=== PATIENT | female | born 1940 | race Caucasian/White ===

== ENCOUNTER → 2016-10-11 | Outpatient (CLI) | payer OTHER ==
[~2016-10-11] MED LIST: ACET-1138 PO; ACET-24 PO; AMLO-114 PO; ASPEC325 PO; ASPI81TA28 PO; ATEN50TA8 PO; CLR10 PO; DOCU100C PO; ESTR0.3T PO; FERR1TAB13 PO; IBUP-1450 PO; POTA10CA28 PO; RXC5 PO; ULT50X PO
--- NOTE | 2016-10-11 12:14 | DIAGNOSTIC IMAGING REPORT ---
FLUOROSCOPICALLY GUIDED RIGHT HIP STEROID AND ANESTHETIC INJECTION CLINICAL HISTORY: Right hip pain and degenerative arthritis COMPARISON STUDY: None FLUOROSCOPY TIME: 38 seconds. A single fluoroscopic spot image was acquired.. FINDINGS: A timeout was performed. The risks of the procedure were explained the patient and informed consent was obtained. The patient was prepped and draped in sterile fashion. The skin was anesthetized 1% lidocaine. A 20-gauge spinal needle was introduced into the joint capsule under fluoroscopic guidance. Intra-articular location was documented with injection of Optiray 300. There was a nodular irregular synovium. 8 cc of 0.5% bupivacaine and 2 cc of betamethasone were instilled into the joint. IMPRESSION: Successful fluoroscopically guided right hip injection. 8 cc of 0.5% bupivacaine and 2 cc of betamethasone were instilled intra-articularly. Electronically signed by: Mark Bowers M.D. 10/11/2016 12:12 PM Dictated Date/Time: 10/11/2016 12:10 PM
--- NOTE | 2016-10-12 11:01 | CODING QUERY NO DIAGNOSIS ---
TREATMENT RENDERED WITHOUT A DIAGNOSIS To promote full compliance with coding requirements relating to patient care, physician participation is requested in all cases of information coder uncertainty. Please assist us with providing a diagnosis/symptom for the test(s) below: A diagnosis/symptom was not documented on your Order. A valid diagnosis/symptom is required to bill all insurances. Please remember that we are unable to code a diagnosis of rule out, probable, possible, questionable, or suspected. DATE OF SERVICE: 10/11/16 Tests that require a diagnosis: * INTRAARTICULAR HIP INJECTION RIGHT DIAGNOSIS: Provider Signature: Date: [facility] Once completed, please kindly fax back to [phone] For questions please call [phone]
== END | disposition home or self-care (01) ==
LOC: C.RADBC 10:43
PROVIDERS: ATTEND Orthopaedic Surgery Sports Medicine
DX: M16.11 Unilateral primary osteoarthritis, right hip (principal)

== ENCOUNTER 2017-06-07 08:20 | Inpatient (IN) | payer OTHER ==
[2017-05-14 08:09] VITALS: BMI 28.0
--- NOTE | 2017-05-14 08:36 | PAT Medication Instructions ---
Service Date May 14, 2017. Current Home Medication List Amlodipine (Norvasc), 10 MG PO QAM Aspirin (Aspirin Ec), 81 MG PO QAM Atenolol (Tenormin), 50 MG PO QAM Docusate Sodium (Stool Softener), 100 MG PO QAM Estrogens, Conjugated (Premarin), 0.3 MG PO 3XWK Ferrous Sulfate (Kp Ferrous Sulfate), 1 TAB PO QAM Ibuprofen (Motrin), 600 MG PO Q6H PRN for Pain Loratadine (Claritin), 10 MG PO DAILY PRN for WATERY EYES Potassium Chloride (Micro-K Ext Rel), 10 MEQ PO DAILY PRN for LEG CRAMPS Medication Instructions For Your Scheduled Surgery - Hold the following medications per surgeon's instructions: Ibuprofen (Motrin), 600 MG PO Q6H PRN for Pain - Hold the following medications the morning of surgery: Ferrous Sulfate (Kp Ferrous Sulfate), 1 TAB PO QAM Loratadine (Claritin), 10 MG PO DAILY PRN for WATERY EYES Potassium Chloride (Micro-K Ext Rel), 10 MEQ PO DAILY PRN for LEG CRAMPS Docusate Sodium (Stool Softener), 100 MG PO QAM Estrogens, Conjugated (Premarin), 0.3 MG PO 3XWK - Take the following medications the morning of surgery with a sip of water OTHERWISE NOTHING TO EAT OR DRINK AFTER MIDNIGHT: Amlodipine (Norvasc), 10 MG PO QAM Aspirin (Aspirin Ec), 81 MG PO QAM Atenolol (Tenormin), 50 MG PO QAM If you have any questions please call us at [phone] or [phone] or [phone]
--- NOTE | 2017-05-14 09:18 | DIAGNOSTIC IMAGING REPORT ---
TWO VIEW CHEST CLINICAL HISTORY: Preoperative examination. FINDINGS: PA and lateral chest radiographs are compared to study dated 04/23/2016. The cardiomediastinal silhouette is unremarkable. The lungs and pleural spaces are clear. There is no pneumothorax. The skeletal structures are osteopenic. The bony thorax appears intact. Suture material is noted in the upper abdomen. IMPRESSION: No active disease in the chest. Electronically signed by: Ramin Roper M.D. 05/14/2017 9:16 AM Dictated Date/Time: 05/14/2017 9:15 AM
[2017-05-14 09:42] LABS: BASO % 0.9 %; BASO ABS # 0.06 K/uL (0-0.2); COMPLETE YES; EOS % 2.8 %; HEMATOCRIT 43.5 % (37-47); IG% 0.3 %; LYMPH % 21.2 %; LYMPH ABS # 1.37 K/uL (1.2-3.4); MEAN CELL VOLUME 88.1 fL (80-100); MEAN CORPUSCULAR HEMOGLOBIN 31.6 pg (25-34); MEAN CORPUSCULAR HGB CONC 35.9 g/dl (32-36); MEAN PLATELET VOLUME 10.6 fL (7.4-10.4); MONO % 7.9 %; NEUT % 66.9 %; PLATELET COUNT 340 K/uL (130-400); RED BLOOD COUNT 4.94 M/uL (4.2-5.4); WHITE BLOOD COUNT 6.46 K/uL (4.8-10.8)
[2017-05-14 09:55] LABS: INR 0.9 (0.9-1.1); PROTHROMBIN TIME (PATIENT) 10.1 SECONDS (9.0-12.0)
[2017-05-14 11:55] LABS: BLOOD UREA NITROGEN 14 mg/dl (7-18); BUN/CREATININE RATIO 21.2 (10-20); C-REACTIVE PROTEIN < 0.29 mg/dl (0-0.29); CALCIUM 9.5 mg/dl (8.5-10.1); CARBON DIOXIDE 29 mmol/L (21-32); CHLORIDE 106 mmol/L (98-107); CREATININE 0.66 mg/dl (0.60-1.20); GLUCOSE 94 mg/dl (70-99); POTASSIUM 4.2 mmol/L (3.5-5.1); SODIUM 140 mmol/L (136-145)
--- NOTE | 2017-05-30 14:16 | HISTORY & PHYSICAL EXAMINATION ---
DATE OF ADMISSION: 06/07/2017 CHIEF COMPLAINT: Right hip pain and leg pain. HISTORY OF PRESENT ILLNESS: The patient is a 76-year-old female who is status post a left knee replacement about a year ago who presents for treatment of her right hip. She describes groin pain. The more she walks, the more it hurts. It has been fairly chronic, but gotten worse since her knee replacement surgery. She has nighttime discomfort. She has difficulty putting her shoes and socks on. She has now become limited by this pain and would like to have a right hip replaced. PAST MEDICAL HISTORY: Significant for hypertension. PAST SURGICAL HISTORY: Include: 1. Cyst removal from her lung. 2. Cyst removed from her spine. 3. Left total knee replacement done 05/23/2016. ALLERGIES: None. CURRENT MEDICINES: Include: 1. Amlodipine 10 mg. 2. Prempro 3 times a week. 3. Atenolol 50 mg a day. 4. Aspirin 81 mg. 5. Loratadine 10 mg a day. 6. Ibuprofen. SOCIAL HISTORY: A 76-year-old female patient from [place]. She is . REVIEW OF SYSTEMS: Negative for diabetes, neurologic problems, vascular problems, bleeding disorders. No chest pain or shortness of breath. No history of DVT or PE. PHYSICAL EXAMINATION: GENERAL: Reveals a healthy pleasant, middle-aged female. She looks to be in pretty good health. HEAD, EYES, EARS, NOSE, AND THROAT EXAMINATION: Benign. NECK: Supple. No lymphadenopathy. LUNGS: Clear to auscultation. HEART: Has a regular rate and rhythm. ABDOMEN: Soft, nontender, nondistended. EXTREMITY EXAMINATION: Grossly neurovascularly intact except as follows: Examination of the right hip reveals the patient walks with a slightly antalgic gait. Leg lengths clinically appear pretty equal. She does have pain with any type of hip motion. Hip internal rotation is to neutral at best. External rotation at 25 degrees. Negative straight leg raise. X-RAYS: X-rays of the right hip reveal advanced right hip DJD. She has got complete loss of her joint space. She has got osteophytes around the femoral head and acetabulum. ASSESSMENT: A 76-year-old female a year out from a left knee replacement with advanced right hip degenerative joint disease. She is now limited by her hip pain and discomfort and stiffness. She would like to have her hip replaced. PLAN: We will take her to the operating room and do a right total hip replacement. The risks and benefits of this procedure were explained to the patient including but not limited to DVT, PE, , infection, neurological injury, vascular injury, bleeding problem, pain, limited range of motion, stiffness, failure to relieve her symptoms, incomplete relief of symptoms, need for further surgery in the future, fracture, leg length inequality, nerve palsy, dislocation, need for revision surgery, etc. The patient understands and desires to proceed. Informed consent was obtained. We did talk to her about taking his atenolol the morning of surgery. She is planning to be discharged to home using [facility] home health program.
[2017-06-07] VITALS (15 sets, daily range): BP systolic 107–166; BP diastolic 58–96; PULSE 71–80; TEMP 36.3–36.9; O2SAT 91–99; Ht 160 cm; Wt 73.8 kg
[~2017-06-07] VITALS: Ht 160 cm; Wt 73.8 kg
[~2017-06-07 08:20] MED LIST changes: -ACET-1138 PO; -ACET-24 PO; +ACETAMINOPHEN 500 MG TAB PO SCH; -ASPEC325 PO; +BUPIVACAINE 0.5 % 5 MG/1 ML PF 10ML VIAL ONE; +CEFAZOLIN 2000 MG/60 ML D5W 60 ML IV SCH; +FAMOTIDINE 20 MG TAB PO SCH; +GABAPENTIN 300 MG CAP PO SCH; +LACTATED RINGER'S 1000ML 1,000 ML IV SCH; +LACTATED RINGER'S 1000ML 500 ML IV ONE; +LACTATED RINGER'S 1000ML IV SCH; +METOCLOPRAMIDE HCL 10 MG TAB PO SCH; -RXC5 PO; +SCOPOLAMINE 1.5 MG TDSY TD SCH; +TRANEXAMIC ACID INJ 1,000 MG in SODIUM CHLORIDE 0.9% 100ML 100 ML IV SCH; -ULT50X PO
--- NOTE | 2017-06-07 09:10 | History & Physical Bridge Note ---
H&P Re-Evaluation Bridge Note: I have examined the patient, reviewed the History & Physical and in the interval since the performance of the History & Physical I have noted the following changes of clinical significance: No changes noted
[2017-06-07] MEDS ORDERED: FENTANYL CITRATE INJ 50 MCG/1 ML 2 ML VIAL ONE (10:06)
[2017-06-07] MEDS ORDERED: MIDAZOLAM HCL 1 MG/ML 2ML VIAL ONE (10:06)
[2017-06-07] MEDS ORDERED: ONDANSETRON INJ 2 MG/ML 2 ML VIAL IV PRN ×2 (10:30→13:45)
[2017-06-07] MEDS ORDERED: ATROPINE SULFATE 0.1 MG/ML 5ML SYR IV PRN (10:30)
[2017-06-07] MEDS ORDERED: EpHEDrine SULFATE INJ 50 MG/ML AMP IV PRN ×2 (10:30→13:45)
[2017-06-07] MEDS ORDERED: MoRPHine SULFATE PF 1 MG/ML 10 ML AMP/VIAL ONE (10:44)
[2017-06-07] MEDS ORDERED: BACITRACIN 50000 UNIT VIAL ONE ×2 (11:16→11:27)
[2017-06-07] MEDS ORDERED: BUPIVACAINE/EPINEPHRINE 0.5% MPF 1:200,000 30 ML VIAL ONE ×2 (11:16→11:27)
[2017-06-07] MEDS ORDERED: EpHEDrine SULFATE 50MG/5ML SYR ONE (11:46)
[2017-06-07] MEDS ORDERED: PROPOFOL IV EMULSION 10 MG/ML 20 ML VIAL IV ONE (11:46)
[2017-06-07] MEDS ORDERED: LIDOCAINE HCL 2% 2 ML VIAL (20MG/ML) ONE (11:46)
[2017-06-07] MEDS ORDERED: PHENYLEPHRINE 100MCG/ML 5ML SYR ONE (11:54)
--- NOTE | 2017-06-07 13:04 | [facility] Post Operative Brief Note ---
Immediate Operative Summary Operative Date Jun 07, 2017. Pre-Operative Diagnosis Advanced Right Hip Degenerative Joint Disease Post-Operative Diagnosis Same as preoperative Procedure(s) Performed Right Total Hip Arthroplasty, Uncemented Surgeon Dr. Jeremy Thacker Kitchen Food Server Surgeon(s) Je Salinas PA-C Estimated Blood Loss 300ML Findings Right Hip DJD Fluids (cc crystalloids) 1350 cc Specimens A.) Right Femoral Head Drains None Anesthesia Spinal Complication(s) None Disposition Recovery Room / PACU
[2017-06-07] MEDS ORDERED: BISACODYL 10 MG SUPP PR PRN (13:15)
[2017-06-07] MEDS ORDERED: POTASSIUM CHLORIDE 10 MEQ TABCR PO PRN (13:15)
[2017-06-07] MEDS ORDERED: MAGNESIUM HYDROXIDE SUSP 30 ML UDC PO PRN (13:15)
[2017-06-07] MEDS ORDERED: ALUMINUM/MAGNESIUM/SIMETH (MAALOX MAX) 30 ML UDC PO PRN (13:15)
[2017-06-07] MEDS ORDERED: SILVER SULFADIAZINE 1% CR 50 GM JAR EXT PRN (13:15)
[2017-06-07] MEDS ORDERED: LORATADINE 10 MG TAB PO PRN (13:15)
[2017-06-07] MEDS ORDERED: LACTATED RINGER'S 1000ML 500 ML IV PRN (13:31)
[2017-06-07] MEDS ORDERED: NALOXONE HCL INJ 1 MG in SODIUM CHLORIDE 0.9% 1000ML 1,000 ML IV PRN (13:31)
[2017-06-07] MEDS ORDERED: NALOXONE HCL INJ 0.08 MG in SYRINGE 1.8 ML IV PRN (13:31)
[2017-06-07] MEDS ORDERED: SODIUM CHLORIDE 0.9% 1000ML 1,000 ML IV PRN (13:31)
--- NOTE | 2017-06-07 13:41 | DIAGNOSTIC IMAGING REPORT ---
RIGHT PELVIS/UNILATERAL HIP 1 VIEW CLINICAL HISTORY: Postoperative evaluation. COMPARISON: Pelvis and right hip radiographs January 24, 2017. FINDINGS: Alignment of the total right hip arthroplasty is anatomic. There is no periprosthetic fracture or unexpected radiopaque foreign body. Acetabular screws are placed. There are skin sophia. IMPRESSION: Expected findings following total right hip arthroplasty. Electronically signed by: Luigi Webb M.D. 06/07/2017 1:39 PM Dictated Date/Time: 06/07/2017 1:38 PM
[2017-06-07] MEDS ORDERED: DiphenhydrAMINE HCL 50 MG/ML VIAL IV PRN (13:45)
[2017-06-07] MEDS ORDERED: NO NARCOTICS OR SEDATIVES SCH (13:45)
[2017-06-07] MEDS ORDERED: NALBUPHINE HCL INJ 10 MG/ML AMP IV PRN (13:45)
[2017-06-07] MEDS ORDERED: MoRPHine SULFATE PF 1 MG/ML 10 ML AMP/VIAL EPI PRN (13:45)
[2017-06-07] MEDS ORDERED: NALOXONE HCL 0.4 MG/1 ML VIAL/CARP IV PRN (13:45)
[2017-06-07] MEDS ORDERED: MoRPHine SULFATE 2 MG/ML CARP IV PRN (13:45)
--- NOTE | 2017-06-07 14:03 | OPERATIVE REPORT ---
DATE OF OPERATION: 06/07/2017 SURGEON: Jeremy Thacker MD FINANCE DIRECTOR: EDITH Vyas PREOPERATIVE DIAGNOSIS: Right hip degenerative joint disease. POSTOPERATIVE DIAGNOSIS: Same. PROCEDURE PERFORMED: Right uncemented total hip arthroplasty. COMPLICATIONS: None. ESTIMATED BLOOD LOSS: 300 mL. FLUID REPLACEMENT: 1350 mL crystalloid fluid replacement. ANESTHESIA: Spinal. DRAINS: None. SPECIMENS: Right femoral head sent for pathology. OPERATIVE INDICATIONS: The patient is a 76-year-old fairly active female, who is a little over a year out from a left knee replacement. She has become more and more limited by her right hip pain. She has a several year history of right hip pain that has gotten significantly worse over the past year. The more she walks, the more it hurts. X-rays revealed advanced hip DJD and the patient elected to proceed with operative treatment. OPERATIVE FINDINGS: Operative findings revealed advanced right hip DJD. She had grade 4 ofbr-ld-sope disease of the femoral head and acetabulum. She had a moderate sized joint effusion. OPERATIVE IMPLANTS: Operative implants consisted of: 1. Biomet G7 size 50-mm acetabular shell. 2. An apex hole eliminator. 3. A 6.5 cancellous acetabular screws, 1 at 35 mm length and 1 at 20 mm in length. 4. A highly cross-linked polyethylene liner with a 50 mm outer diameter and 32 mm inner diameter with a crespo placed inferior and posterior. 5. A DePuy size 12 small stature AML femoral stem. 6. A +1/32 mm metal articular ball. OPERATIVE PROCEDURE: The patient was taken to the operating room, identified and placed on the operating table in supine position. All contact areas were appropriately padded. IV antibiotics were provided by anesthesia team. A spinal anesthetic had been implemented in the holding area. Rivera catheter was placed in sterile fashion. The patient was then placed in the left lateral decubitus position. An axillary roll was placed. Stulberg hip positioner was used for positioning. The right hip and leg were then prepped and draped in the usual sterile fashion. A posterolateral approach to the right hip was then performed through a curvilinear incision centered over the greater trochanter. Sharp dissection was carried through the subcutaneous tissues down to the IT band and gluteal fascia. The IT band and gluteal fascia were then incised longitudinally in line with skin incision. The greater trochanteric bursa was excised. The piriformis and external rotators were then tagged and taken very carefully off the posterior aspect of the hip joint capsule. Great care was taken throughout the procedure to protect the sciatic nerve at all times. Posterior capsulotomy was then performed leaving a large flap for later repair. Hip was internally rotated and dislocated. Femoral neck osteotomy cut was made with the final cut 10 mm above the lesser trochanter. Femoral head was removed and sent for pathology. The femur was retracted anteriorly. Attention was then drawn to the acetabulum. The acetabular labrum was excised. The pulvinar fat was excised. Sequential reaming of the acetabulum was then performed beginning with a size 43 and progressing up to 49. A 50-mm Biomet G7 acetabular shell was then placed in about 40 degrees of lateral opening and 20 degrees of anteversion. It was fixed with two 6.5 cancellous acetabular screws. Small osteophyte anteriorly was removed. A trial liner was placed. Attention was then drawn to the femur. The proximal femur was entered with a cookie cutter followed by canal finder and lateralizing reamer. Sequential reaming of the femur was then performed beginning with a size 9 and progressing up to 11.5. We got good chatter at 11.5. I broached beginning with a size 10.5 small broach and progressed to a 12 small. We got good metaphyseal fit. We then trialed the hip. With the +5 articular ball, the hip was stable, but the hip was tight anteriorly. Therefore, we placed a +1 articular ball. It was fully stable in full extension and external rotation, flexion to 90 degrees, and internal rotation to about [address] a crespo inferior and posterior to maximize the stability in flexion. She was tight anteriorly and I wanted to maximize her stability posteriorly. We elected to use these implants. All trial implants were removed. An apex hole eliminator was placed. Highly cross-linked polyethylene liner with a crespo placed inferior and posterior was placed. A DePuy size 12 small stature AML femoral stem was impacted in position. I then placed a +1/32 mm metal articular ball. Hip was located and once again found to be stable. Attention was then drawn toward closing. The wound was irrigated with copious amounts of pulsatile lavage solution. I did inject locally with 60 mL of 0.5% Marcaine with epinephrine. The posterior capsule and external rotators were repaired through drill holes in the posterior trochanter with #2 Ti-Cron suture. The IT band and gluteal fascia were then closed with #1 PDS suture in running fashion. The subcutaneous tissues were then closed with 2 layers with the deep layer #1 Vicryl sutures, subcutaneous tissue with 2-0 Dexon suture in a buried interrupted fashion. The skin was closed with skin sophia. Leg was then cleaned and dried and a sterile dressing of Xeroform, 4 x 4s, ABD pad and foam tape was applied. The patient was then transferred to the recovery room in stable condition. The patient tolerated the procedure well with no complications. All needle and sponge counts were correct at the end of the operation. I attest to the content of the Intraoperative Record and any orders documented therein. Any exception s are noted below.
--- NOTE | 2017-06-07 14:12 | Anesthesiology Progress Note ---
Anesthesia Post Op Note Date & Time Jun 07, 2017 at 14:12 Vital Signs Pain Intensity: 0 Vital Signs Past 12 Hours Date Time Temp Pulse Resp B/P (MAP) Pulse Ox O2 Delivery O2 Flow Rate FiO2 06/07/17 13:41 114/60 06/07/17 13:38 36.4 74 16 114/60 (95) 99 Nasal Cannula 2 06/07/17 13:38 69 13 98 06/07/17 13:38 68 13 06/07/17 13:36 122/63 06/07/17 13:33 75 13 06/07/17 13:33 76 13 99 06/07/17 13:32 77 14 06/07/17 13:32 77 14 98 06/07/17 13:31 113/64 06/07/17 13:27 73 21 06/07/17 13:27 77 21 100 06/07/17 13:26 115/64 06/07/17 13:22 70 15 06/07/17 13:22 69 15 100 06/07/17 13:21 120/62 06/07/17 13:17 78 15 100 06/07/17 13:17 78 15 06/07/17 13:16 129/65 06/07/17 13:12 74 18 100 06/07/17 13:12 75 18 06/07/17 13:11 117/76 06/07/17 13:07 36.0 76 12 118/61 94 Mask 10 06/07/17 13:07 77 16 118/61 94 06/07/17 13:07 77 16 06/07/17 08:45 36.8 71 20 166/96 99 Room Air Notes Mental Status: alert / awake / arousable, participated in evaluation Pt Amnestic to Procedure: Yes Nausea / Vomiting: adequately controlled Pain: adequately controlled Airway Patency, RR, SpO2: stable & adequate BP & HR: stable & adequate Hydration State: stable & adequate Neuraxial Anesthesia: was administered, sensory block is resolving Anesthetic Complications: no major complications apparent
[2017-06-07] MEDS: CHECK SCOPOLAMINE PATCH PLACEMENT SCH ×2 (15:33→23:34)
[2017-06-07] MEDS: D5W AND 1/2NSS + 20MEQ KCL 1,000 ML IV SCH ×2 (15:33→23:34)
[2017-06-07] MEDS: KETOROLAC TROMETHAMINE 15 MG/ML VIAL IV. SCH ×2 (15:33→22:18)
[2017-06-07] MEDS: FERROUS GLUCONATE 324 MG TAB PO SCH (17:20)
--- NOTE | 2017-06-07 18:03 | PROGRESS NOTE ---
DATE: 06/07/2017 SUBJECTIVE: A 76-year-old female postop from a right total hip replacement. She is doing well. Really not having any pain yet. No chest pain or shortness of breath. Not feeling dizzy or lightheaded. OBJECTIVE: VITAL SIGNS: Temperature 36.3. Vital signs stable. PHYSICAL EXAMINATION: GENERAL: Reveals a healthy, pleasant middle-aged female. She is sitting up in bed and looks quite comfortable. LUNGS: Clear to auscultation. HEART: Regular rate and rhythm. ABDOMEN: Soft, nontender, nondistended. EXTREMITIES: Grossly neurovascularly intact except as follows: Examination of the right leg reveals the leg to be well aligned. Dressing is clean, dry and intact. Hip is located. She is neurologically intact. She can dorsiflex and plantarflex her foot appropriately. X-RAYS: X-rays of the right hip from recovery room were reviewed. She has a right uncemented total hip arthroplasty. Components look to be in good position. No signs of problems. ASSESSMENT: A 76-year-old female postop from a right total hip replacement. She is doing well. Pain is controlled. Hip is located. She is neurologically intact. PLAN: 1. DVT prophylaxis including thigh-high TEDs, SCDs, and aspirin twice a day. 2. PT/OT. Weightbearing as tolerated. Right total hip protocol. 3. Pain control, doing well with current pain regimen. 4. IV antibiotics x4 hours. 5. Disposition: She is hoping to be discharged to home with some home health once adequately recovered.
[2017-06-07] MEDS ORDERED: TRANEXAMIC ACID INJ 1,000 MG in SODIUM CHLORIDE 0.9% 100ML 100 ML IV ONE (19:00)
[2017-06-07] MEDS: ASPIRIN 325 MG ECTAB PO SCH (20:38)
[2017-06-07] MEDS: SENNA 8.6 MG TAB PO SCH (20:38)
[2017-06-07] MEDS: DOCUSATE SODIUM 100 MG CAP PO SCH (20:38)
[2017-06-07] MEDS: CEFAZOLIN IV 1,000 MG in DEXTROSE 5% 50ML 50 ML IV SCH (20:39)
[2017-06-07] MEDS: ACETAMINOPHEN 500 MG TAB PO SCH (22:18)
[2017-06-08] VITALS (20 sets, daily range): BP systolic 114–155; BP diastolic 64–76; PULSE 64–88; TEMP 36.7–37.2; O2SAT 91–98
[2017-06-08] MEDS: CEFAZOLIN IV 1,000 MG in DEXTROSE 5% 50ML 50 ML IV SCH (04:00)
[2017-06-08] MEDS: KETOROLAC TROMETHAMINE 15 MG/ML VIAL IV. SCH ×4 (04:01→22:44)
[2017-06-08] MEDS: ACETAMINOPHEN 500 MG TAB PO SCH ×3 (05:36→22:43)
[2017-06-08 07:31] LABS: BASO % 0.3 %; BASO ABS # 0.02 K/uL (0-0.2); COMPLETE YES; EOS % 1.6 %; IG% 0.3 %; LYMPH % 17.3 %; LYMPH ABS # 1.19 K/uL (1.2-3.4); MEAN CELL VOLUME 88.9 fL (80-100); MEAN CORPUSCULAR HEMOGLOBIN 30.7 pg (25-34); MEAN CORPUSCULAR HGB CONC 34.5 g/dl (32-36); NEUT % 71.5 %; PLATELET COUNT 222 K/uL (130-400); RED BLOOD COUNT 3.71 M/uL (4.2-5.4); WHITE BLOOD COUNT 6.87 K/uL (4.8-10.8)
[2017-06-08] MEDS: CHECK SCOPOLAMINE PATCH PLACEMENT SCH ×3 (07:50→23:37)
[2017-06-08 08:01] LABS: BUN/CREATININE RATIO 18.2 (10-20); CALCIUM 8.3 mg/dl (8.5-10.1); CREATININE 0.54 mg/dl (0.60-1.20); POTASSIUM 3.4 mmol/L (3.5-5.1)
--- NOTE | 2017-06-08 08:35 | PROGRESS NOTE ---
DATE: 06/08/2017 DATE: 06/08/2017 SUBJECTIVE: A 76-year-old female postop day 1 from right hip replacement. She is doing well. She has some soreness but that is it. Pain is very well controlled. No chest pain or shortness of breath. Not feeling dizzy or lightheaded. OBJECTIVE: VITAL SIGNS: Temperature 36.7. Vital signs stable. PHYSICAL EXAMINATION: GENERAL: Reveals a healthy pleasant elderly female, sitting up in her bedside chair, looks quite comfortable. EXTREMITIES: Examination of right hip reveals the dressing to be clean, dry and intact. Thigh is soft and supple. Hip is located. She is neurologically intact. LABORATORY DATA: Hemoglobin is 11.4, hematocrit 33.0. Electrolytes are stable. ASSESSMENT: A 76-year-old female postop day 1 from right total hip replacement, doing well. Pain is controlled. Hip is located. She is neurologically intact. PLAN: 1. DVT prophylaxis including thigh-high TEDs, SCDs, and aspirin twice a day. 2. PT/OT. Weightbearing as tolerated. Right total hip protocol. 3. Pain control. Doing well with current pain regimen. 4. Disposition. Plan to discharge to home with some home health once adequately recovered.
[2017-06-08] MEDS ORDERED: DOCUSATE SODIUM 100 MG CAP PO SCH (09:00)
[2017-06-08] MEDS: ASPIRIN 325 MG ECTAB PO SCH ×2 (09:17→21:14)
[2017-06-08] MEDS: PANTOprazole SOD 40 MG TAB PO SCH (09:17)
[2017-06-08] MEDS: MULTIVITAMIN TAB PO SCH (09:18)
[2017-06-08] MEDS: AMLODIPINE BESYLATE 5 MG TAB PO SCH (09:18)
[2017-06-08] MEDS: FERROUS GLUCONATE 324 MG TAB PO SCH ×3 (09:18→18:20)
[2017-06-08] MEDS: DOCUSATE SODIUM 100 MG CAP PO SCH ×2 (09:19→21:14)
[2017-06-08] MEDS: D5W AND 1/2NSS + 20MEQ KCL 1,000 ML IV SCH (11:20)
[2017-06-08] MEDS ORDERED: DC INTRASPINAL MORPHINE SCH (12:00)
[2017-06-08] MEDS ORDERED: HYDROmorphone INJ 0.5 MG/0.5 ML SYR IV PRN (12:01)
[2017-06-08] MEDS ORDERED: ONDANSETRON INJ 2 MG/ML 2 ML VIAL IV PRN (12:01)
[2017-06-08] MEDS ORDERED: ZOLPIDEM TARTRATE 5 MG TAB PO PRN (12:01)
[2017-06-08] MEDS ORDERED: TRAMADOL HCL 50 MG TAB PO PRN (12:01)
[2017-06-08] MEDS ORDERED: METOCLOPRAMIDE HCL INJ 5 MG/ML 2 ML VIAL IV PRN (12:01)
[2017-06-08] MEDS ORDERED: ULT50X PO (20:49)
[2017-06-08] MEDS ORDERED: ACET-24 PO (20:49)
[2017-06-08] MEDS ORDERED: ASPEC325 PO (20:49)
--- NOTE | 2017-06-08 20:53 | Discharge Instructions ---
Discharge Instructions Date of Service Jun 08, 2017. Admission Reason for Admission: Right Hip Degenerative Joint Disease Discharge Discharge Diagnosis / Problem: Right Hip Replacement Discharge Goals Goal(s): Decrease discomfort, Improve function, Increase independence, Improve disease control, Therapeutic intervention Activity Recommendations Activity Limitations: per Instructions/Follow-up section (Total Hip Precautions ) Weightbearing Status: Right weightbearing . Instructions / Follow-Up Instructions / Follow-Up ACTIVITY RECOMMENDATIONS: Physical Therapy: * Aggressive physical therapy is not usually needed. You will learn to take care of yourself safely and walk. * Follow the "Hip Precautions Instructions." * In some cases, the administrator social welfare at the hospital will arrange to have a therapist come to your house for the first couple of weeks to help you learn these skills. * You need to practice on your own or with the help of a family member as needed. * When you learn these skills, most of the therapy can be done on your own. Home Exercise: * You were shown a series of exercises in the hospital. Do these exercises three to four times each day including the exercises you were shown in physical therapy. Walking: * Get up and walk several times each day. For the first four weeks, try not to stand or walk for more than one hour at a time. If you do stand or walk for more than one hour, you will not hurt anything, but your leg will likely swell. * As you feel comfortable, you may change from the walker or crutches to a cane and then to independent walking. MEDICATIONS: New Medicine: * You will likely be taking one or more of these medicines: 1. Tramadol - Take, as directed, when you need it, every four to six hours to control your pain. 2. Aspirin - Thins your blood to lessen the chance of forming a blood clot. * The most common side effects of pain medicine and iron are nausea and constipation. If nausea or constipation is too much of a problem or if you have any questions about your new medicines or doses, call [facility] at . We will try to help you manage these issues. VERY IMPORTANT TO READ AND REVIEW" Pain: * The immediate post-operative period after hip replacement surgery is often quite painful. * You are given a prescription for pain medicine. You should take it, as directed, when you need it, especially before physical therapy and before going to bed. Pain that interferes with sleep is very common and can last several months. * You will likely need pain medicine for the first two to four weeks. It will not stop all of the pain. The pain will lessen and as you feel better, you may change to milder pain medicine such as Tylenol. * The most common side effects of pain medicine are nausea and constipation, so don't take more than you need. SPECIAL CARE INSTRUCTIONS: TEDs/Elastic Stockings: * The white elastic stockings help limit swelling and prevent blood clots from forming in your legs. The more you wear them, the more they work. * Wear them for six weeks. Prevention of Infection: * Take antibiotics one hour before any dental cleaning, dental work, urological procedure, gastrointestinal procedure or any invasive surgery in order to prevent your new joint from getting infected. * You may get the antibiotics from the doctor performing the procedure or you may call our office at before and we will call in a prescription to the pharmacy of your choice. Things to Watch For: * Drainage from the incision site that occurs more than one week after your surgery. * Severely increased leg pain or swelling. * Increased redness at the incision site. * Fever above 102 degrees Fahrenheit. * Unusual chest pain or shortness of breath. * Unusual pain or burning with urination. Call [facility] at with any of the above problems or if you have any questions about your medicines or recovery. FOLLOW UP VISIT: Make an appointment to see your doctor for approximately two weeks after surgery for a progress check and staple removal by calling the office at . Current Hospital Diet Patient's current hospital diet: Regular Diet Discharge Diet Recommended Diet: Regular Diet Procedures Procedures Performed: Right Total Hip Arthroplasty, Uncemented Pending Studies Studies pending at discharge: no Medical Emergencies . Who to Call and When: Medical Emergencies: If at any time you feel your situation is an emergency, please call [phone] immediately. . Non-Emergent Contact Non-Emergency issues call your: Surgeon . "Provider Documentation" section prepared by Jeremy Thacker. . VTE Core Measure Inpt VTE Proph given/why not?: Other Anticoagulation, T.E.D. Stockings, SCD's
[2017-06-08] MEDS: SENNA 8.6 MG TAB PO SCH (23:39)
[2017-06-09] MEDS: KETOROLAC TROMETHAMINE 15 MG/ML VIAL IV. SCH ×2 (04:10→10:00)
[2017-06-09] MEDS: ACETAMINOPHEN 500 MG TAB PO SCH (05:20)
[2017-06-09 06:27] VITALS: BP 160/77; PULSE 76; TEMP 37; O2SAT 97
[2017-06-09] MEDS: CHECK SCOPOLAMINE PATCH PLACEMENT SCH (07:06)
[2017-06-09] MEDS: PANTOprazole SOD 40 MG TAB PO SCH (07:07)
[2017-06-09] MEDS: FERROUS GLUCONATE 324 MG TAB PO SCH (07:07)
[2017-06-09] MEDS: AMLODIPINE BESYLATE 5 MG TAB PO SCH (07:07)
[2017-06-09] MEDS: MULTIVITAMIN TAB PO SCH (07:07)
[2017-06-09] MEDS: DOCUSATE SODIUM 100 MG CAP PO SCH (07:07)
[2017-06-09] MEDS ORDERED: POTASSIUM CHLORIDE 10 MEQ TABCR PO STA (07:11)
[2017-06-09] MEDS: ASPIRIN 325 MG ECTAB PO SCH (07:29)
--- NOTE | 2017-06-09 08:34 | PROGRESS NOTE ---
DATE: 06/09/2017 SUBJECTIVE: A 76-year-old female postop day 2 from a right total hip replacement. She is doing pretty well. The hip is sore. Pain is reasonably well-controlled. Feels just a little bit tired and worn out this morning. No chest pain, no shortness of breath. OBJECTIVE: VITAL SIGNS: Temperature 37.0. Vital signs stable. PHYSICAL EXAMINATION: GENERAL: Reveals a pleasant elderly female. She is sitting over her bedside chair, eating breakfast. She looks comfortable. LUNGS: Clear to auscultation. HEART: Regular rate and rhythm. ABDOMEN: Soft, nontender, nondistended. EXTREMITIES: Grossly neurovascularly intact except as follows: Examination of the right hip and leg reveals the dressing to be clean, dry and intact. Hip is located. She is neurologically intact. ASSESSMENT: This is a 76-year-old female postop day 2 from right total hip replacement, doing pretty well. Her potassium has been a little bit low. We will supplement that. PLAN: 1. DVT prophylaxis include, thigh-high TEDs, SCDs, and aspirin twice a day. 2. PT/OT. Weightbearing as tolerated. Right total hip protocol. 3. Pain control. Doing well with current pain regimen. 4. Hypokalemia. Potassium just slightly low. We will supplement that today. 5. Disposition: Plan to discharge to home with home health later today.
[2017-06-09 09:41] VITALS: BP 160/77; PULSE 76; TEMP 37; O2SAT 97
--- NOTE | 2017-06-13 00:12 | DISCHARGE SUMMARY ---
ADMITTING PHYSICIAN AND SURGEON: Dr. Thacker. ADMITTING DIAGNOSIS: Right hip degenerative joint disease. SURGERY PERFORMED: Right total hip arthroplasty. SECONDARY DIAGNOSES: Include hypertension. CONSULTS: None obtained. HISTORY AND PHYSICAL EXAMINATION: Well documented in the patient's chart. HOSPITAL COURSE: The patient was admitted on 06/07/2017 underwent total hip arthroplasty. She tolerated the procedure well. There were no complications. She was transferred to the PACU postoperatively and later to the orthopedic floor for further care. She was given Ancef for antibiotic prophylaxis, SOFIE stockings, SCDs and aspirin for DVT prophylaxis. Hemoglobin, hematocrit and vital signs were monitored during her hospital stay and remained stable. She did not require any blood transfusions. She did develop some hypokalemia postoperatively and was given a potassium supplement. There were no complications. By postoperative day 2, she was tolerating a general diet. Pain was controlled with oral pain medicine. She was participating in physical therapy and had no signs or symptoms of deep vein thrombosis. On postop day 2, she was discharged home and set up with home health services. She was given printed discharge instructions including new prescriptions for extra strength Tylenol, aspirin 325 mg b.i.d., tramadol. Continue her home medications with the exception of her home dose of aspirin which was changed. Continue physical therapy, weightbearing as tolerated, total hip precautions, SOFIE stockings. Follow up in 10-12 days or sooner if any problems or concerns.
== END 2017-06-09 11:14 | disposition home health service (06) | DRG 470 ==
LOC: C.ACU 08:20 → C.MSN 13:08 → ENRESERV 13:37 → CANRESERV 13:37 → ENRESERV 14:22
PROVIDERS: ADMIT Orthopaedic Surgery Sports Medicine; ATTEND Orthopaedic Surgery Sports Medicine
PROC: 0SR902A Replacement of Right Hip Joint with Metal on Polyethylene Synthetic Substitute, Uncemented, Open Approach (ICD-10-PCS; principal; 2017-06-07 10:50)
DX: M16.11 Unilateral primary osteoarthritis, right hip (principal); E87.6 Hypokalemia; I10 Essential (primary) hypertension; Z96.652 Presence of left artificial knee joint; Z79.82 Long term (current) use of aspirin; Z79.890 Hormone replacement therapy; Z79.899 Other long term (current) drug therapy